=== PATIENT | male | born 1990 | race Caucasian/White ===

== ENCOUNTER 2017-08-09 15:43 | Emergency (ER) | payer MEDICAID, OTHER ==
[~2017-08-09] VITALS: Ht 188 cm; Wt 112.5 kg
[2017-08-09 15:52] VITALS: BP 157/85
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
[2017-08-09] MEDS ORDERED: CLINDAMYCIN 150 MG CAP PO ONE (16:30)
--- NOTE | 2017-08-09 16:50 | NUR ---
Pt resting comfortably in [facility] at this time. Addendum: 08/09/17 at 1715 by [email or web address] Pt resting comfortably in [facility] at this time. vss. safety precautions in place. will continue to monitor.
[2017-08-09 17:11] VITALS: BP 133/62
--- NOTE | 2017-08-09 17:12 | NUR ---
Patient discharged with v/s stable. Written and verbal after care instructions given and explained. Patient alert, oriented and verbalized understanding of instructions. Ambulatory with steady gait. All questions addressed prior to discharge. ID band removed. Patient advised to follow up with PMD. Rx of Clindamycin and Motrin given. Patient educated on indication of medication including possible reaction and side effects. Opportunity to ask questions provided and answered.
== END 2017-08-09 17:12 | disposition home or self-care (01) ==
LOC: MED 15:43
DX: L03.114 Cellulitis of left upper limb (principal); Z88.6 Allergy status to analgesic agent
CPT/HCPCS: 99283

== ENCOUNTER 2017-12-24 08:46 | Emergency (ER) | payer OTHER ==
[~2017-12-24] VITALS: Ht 188 cm; Wt 113.4 kg
--- NOTE | 2017-12-24 08:55 | NUR ---
PT AMBULATED TO BED 9
[2017-12-24 08:59] VITALS: BP 146/87
--- NOTE | 2017-12-24 09:05 | NUR ---
PT. CAME INTO THE ED DUE TO C/O OD DISCHARGE, SWELLING, POSSIBLE FB X YESTERDAY WORKS IN [employer] . PT. REPORTS NO BLURRY VISION ON R EYE AT THIS TIME. 6/10 PAIN THAT IS BURNING AND NON RADIATING X YESTERDAY. GREEN DISCHARGE FROM R EYE NOTED WITH REDNESS AND SWELLING. ER MD NOTIFIED. SAFETY PRECAUTIONS IMPLEMENTED. WILL CONTINUE TO MONITOR.
[2017-12-24] MEDS ORDERED: FLUORESCEIN OPTH STRIP 0.6 MG ONE (09:08)
[2017-12-24] MEDS ORDERED: TETRACAINE HCL/PF 0.5% OPTH 4 ML BTL OP ONE (09:10)
[2017-12-24] MEDS ORDERED: TETRACAINE HCL/PF 0.5% OPTH 4 ML BTL ONE (09:13)
--- NOTE | 2017-12-24 09:22 | NUR ---
ER MD EVALUATING PT AT BEDSIDE AT THIS TIME.
[2017-12-24 09:33] VITALS: BP 140/86
--- NOTE | 2017-12-24 09:33 | NUR ---
Patient discharged with v/s stable. Written and verbal after care instructions given and explained. Patient alert, oriented and verbalized understanding of instructions. Ambulatory with steady gait. All questions addressed prior to discharge. ID band removed. Patient advised to follow up with PMD. Rx of BLEPH- 10 10% OPTHALMIC SOLUTION given. Patient educated on indication of medication including possible reaction and side effects. Opportunity to ask questions provided and answered.
== END 2017-12-24 09:33 | disposition home or self-care (01) ==
LOC: MED 08:46
DX: H10.9 Unspecified conjunctivitis (principal); R03.0 Elevated blood-pressure reading, without diagnosis of hypertension; F41.9 Anxiety disorder, unspecified; Z88.8 Allergy status to other drugs, medicaments and biological substances
CPT/HCPCS: 99283

== ENCOUNTER 2021-07-27 20:42 | Emergency (ER) | payer OTHER ==
[~2021-07-27] VITALS: Ht 276.9 cm; Wt 135.6 kg
[2021-07-27 20:45] VITALS: BP 101/91
--- NOTE | 2021-07-27 20:55 | NUR ---
PT TAKEN TO BED 9
--- NOTE | 2021-07-27 21:00 | NUR ---
SEE COMPLETE ASSESSMENT. PT ATTACHED TO ASSISTANT [employer]IA [employer]ER.
--- NOTE | 2021-07-27 21:01 | NUR ---
Dr. Brooks examining patient.
[2021-07-27] MEDS ORDERED: EPINEPHrine 1 MG/ML AMP IM ONE (21:05)
--- NOTE | 2021-07-27 22:11 | NUR ---
DR. KWAN AT BEDSIDE
--- NOTE | 2021-07-27 22:16 | NUR ---
ERYTHEMA AND URTICARIA SLOWLY DECREASING TO CHEST. PT ENDORSES "I AM ABLE TO BREATHE BETTER." O2 SAT AT 97%RA. LUNGS CLEAR THROUGHOUT. WILL CONTINUE TO MONITOR.
[2021-07-27] MEDS ORDERED: predniSONE 20 MG TAB PO ONE (22:45)
--- NOTE | 2021-07-27 23:43 | NUR ---
DR. KWAN AT BEDSIDE FOR REEVALUATION
[2021-07-27 23:48] VITALS: BP 157/79
[2021-07-27] MEDS ORDERED: FAMO-90 PO (23:48)
[2021-07-27] MEDS ORDERED: DIPH25TA53 PO (23:48)
[2021-07-27] MEDS ORDERED: EPIN1KIT31 IM (23:48)
[2021-07-27] MEDS ORDERED: PRED20TA5 PO (23:48)
--- NOTE | 2021-07-27 23:50 | NUR ---
ERYTHEMA AND URTICARIA RESOLVED. O2 SAT MAINTAINED AT 97%RA.
--- NOTE | 2021-07-28 00:15 | NUR ---
Patient discharged with v/s stable. Written and verbal after care instructions given and explained. Patient alert, oriented and verbalized understanding of instructions. Ambulatory with steady gait. All questions addressed prior to discharge. ID band removed. Patient advised to follow up with PMD. Rx of PEPCID, BENADRYL, PREDNISONE, AND EPI-PEN given. Patient educated on indication of medication including possible reaction and side effects. Opportunity to ask questions provided and answered.
== END 2021-07-28 00:15 | disposition home or self-care (01) ==
LOC: MED 20:42
DX: T78.40XA Allergy, unspecified, initial encounter (principal); F12.90 Cannabis use, unspecified, uncomplicated; Z88.8 Allergy status to other drugs, medicaments and biological substances; Z79.899 Other long term (current) drug therapy; Z98.890 Other specified postprocedural states; X58.XXXA Exposure to other specified factors, initial encounter
CPT/HCPCS: 96372; 99283; J0171; J7512; Q0163

== ENCOUNTER 2021-08-12 22:41 | Emergency (ER) | payer SELFPAY ==
[~2021-08-12] VITALS: Ht 188 cm; Wt 137.4 kg
[~2021-08-12 22:41] MED LIST: DIPH25TA53 PO; EPIN1KIT31 IM; FAMO-90 PO; PRED20TA5 PO
[2021-08-12 22:45] VITALS: BP 104/46
--- NOTE | 2021-08-12 22:50 | NUR ---
PT TAKEN BED 11
[2021-08-12] MEDS ORDERED: EPINEPHrine 1 MG/ML AMP ONE (22:53)
[2021-08-12] MEDS ORDERED: EPINEPHrine 1 MG/ML AMP IM ONE (22:55)
[2021-08-12] MEDS ORDERED: methylPREDNISolone SS 125 MG/2 ML VIAL IVP ONE (22:55)
[2021-08-12] MEDS ORDERED: diphenhydrAMINE 50 MG/ML VIAL IVP ONE (22:55)
[2021-08-12] MEDS ORDERED: FAMOTIDINE 20 MG/2 ML VIAL IVP ONE (22:55)
[2021-08-12] MEDS ORDERED: diphenhydrAMINE 50 MG/ML VIAL ONE (22:55)
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
[2021-08-13] MEDS ORDERED: EPIN1KIT31 IM (00:15)
[2021-08-13] MEDS ORDERED: DIPH25TA53 PO (00:15)
[2021-08-13] MEDS ORDERED: FAMO-92 PO (00:15)
[2021-08-13] MEDS ORDERED: PRED20TA5 PO (00:15)
--- NOTE | 2021-08-13 00:34 | NUR ---
PATIENT VSS WITH 6L NC O2 SAT 97%. PATIENT TOLERATING MEDICAL INTERVENTION WELL. SLEEPING AND WILL CONTINUE TO MONITOR FOR Q2HR, THEN D/C IF PATIENT CONTINUES STABLE VITALS. EDUCATIONAL INTERVENTION COMPLETED BY SELF ROSSY RN UPON FIRST ENCOUNTER REGARDING ALLERGIC REACTION AND USE OF EPI PEN.
[2021-08-13 02:16] VITALS: BP 122/82
== END 2021-08-13 02:10 | disposition home or self-care (01) ==
LOC: MED 22:41
DX: T78.2XXA Anaphylactic shock, unspecified, initial encounter (principal); Z79.899 Other long term (current) drug therapy; Z88.8 Allergy status to other drugs, medicaments and biological substances
CPT/HCPCS: 96372; 96374; 96375; 99284; J0171; J1200; J2930; J3490

== ENCOUNTER 2021-08-22 23:29 | Emergency (ER) | payer SELFPAY ==
[~2021-08-22] VITALS: Ht 182.9 cm; Wt 135.6 kg
[~2021-08-22 23:29] MED LIST changes: +FAMO-92 PO
[2021-08-22 23:31] VITALS: BP 156/79
--- NOTE | 2021-08-23 00:20 | NUR ---
SEEN AND EXAMINED BY AMALIA WITH ORDERS AND CARRIED OUT.
[2021-08-23] MEDS ORDERED: EPINEPHrine 1 MG/ML AMP ONE (00:21)
[2021-08-23] MEDS ORDERED: methylPREDNISolone SS 125 MG/2 ML VIAL IVP ONE (00:25)
[2021-08-23] MEDS ORDERED: FAMOTIDINE 20 MG/2 ML VIAL IVP ONE (00:25)
[2021-08-23] MEDS ORDERED: diphenhydrAMINE 50 MG/ML VIAL IVP ONE (00:25)
[2021-08-23] MEDS ORDERED: EPINEPHrine 1 MG/ML AMP SUBQ ONE (00:25)
[2021-08-23] MEDS ORDERED: EPINEPHrine 1 MG/ML AMP IM ONE (00:25)
[2021-08-23] MEDS ORDERED: FAMOTIDINE 20 MG TAB PO ONE (01:30)
[2021-08-23] MEDS ORDERED: methylPREDNISolone SS 125 MG/2 ML VIAL IM ONE (01:30)
[2021-08-23] MEDS ORDERED: diphenhydrAMINE 50 MG/ML VIAL IM ONE (01:30)
--- NOTE | 2021-08-23 01:32 | NUR ---
MEDICATED PER [facility] ORDER, BENADRYL 50 MG IM, SOLU MEDROL 125 MG IM, PEPCID 20MG PO, TOLERATED WELL.
[2021-08-23] MEDS ORDERED: DIPH25TA53 PO (02:00)
[2021-08-23] MEDS ORDERED: PRED20TA5 PO (02:00)
[2021-08-23] MEDS ORDERED: EPIN1KIT31 IM (02:00)
[2021-08-23] MEDS ORDERED: FAMO-92 PO (02:00)
[2021-08-23 02:13] VITALS: BP 119/82
--- NOTE | 2021-08-23 02:13 | NUR ---
Patient discharged with v/s stable. Written and verbal after care instructions given and explained. Patient alert, oriented and verbalized understanding of instructions. Ambulatory with steady gait. All questions addressed prior to discharge. ID band removed. Patient advised to follow up with PMD. Rx of BENADRYL, EPIPEN, PEPCID,DELTASONE given. Patient educated on indication of medication including possible reaction and side effects. Opportunity to ask questions provided and answered.
== END 2021-08-23 02:13 | disposition home or self-care (01) ==
LOC: MED 23:29
DX: T78.2XXA Anaphylactic shock, unspecified, initial encounter (principal); Z79.899 Other long term (current) drug therapy; Z88.8 Allergy status to other drugs, medicaments and biological substances
CPT/HCPCS: 96372; 99284; J0171; J1200; J2930

== ENCOUNTER 2023-07-12 15:53 | Emergency (ER) | payer BC ==
[~2023-07-12] VITALS: Ht 188 cm; Wt 140.6 kg
[2023-07-12 16:01] VITALS: BP 167/102; PULSE 68; RESP 18; TEMP 96.9; O2SAT 98
[2023-07-12] MEDS ORDERED: IBUP-1842 PO (16:27)
[2023-07-12] MEDS: KETOROLAC 30 MG/ML VIAL IM ONE (16:28)
[2023-07-12 18:08] VITALS: BP 149/73; PULSE 68; RESP 18; TEMP 96.9
[2023-07-12 18:20] VITALS: O2SAT 98
== END 2023-07-12 18:44 | disposition home or self-care (01) ==
LOC: MED 15:53
DX: I10 Essential (primary) hypertension (principal); R51.9 Headache, unspecified; Z79.899 Other long term (current) drug therapy; Z88.8 Allergy status to other drugs, medicaments and biological substances
CPT/HCPCS: 70450; 96372; 99285; J1885